=== PATIENT | female | born 1995 | race Caucasian/White ===

== ENCOUNTER 2016-07-19 11:03 | Emergency (ER) | payer OTHER ==
[2016-07-19 11:07] VITALS: BP 134/90; PULSE 81; RESP 16; TEMP 98.6; O2SAT 97
[2016-07-19 12:11] LABS: ANION GAP 8 mEq/L (8-16); CALCIUM 9.5 mg/dL (8.5-10.4); CARBON DIOXIDE 27 mEq/l (22-31); CHLORIDE 106 mEq/L (97-110); CREATININE 0.8 mg/dL (0.6-1.0); ETHANOL SERUM < 10 mg/dL (0-10); GLOMERULAR FILTRATION RATE > 60; GLUCOSE 84 mg/dL (70-100); POTASSIUM 4.2 mEq/L (3.5-5.2); SODIUM 141 mEq/L (134-144)
[2016-07-19 12:15] LABS: % IMMATURE GRANULYOCYTES 0.3 % (0.0-1.1); ABSOLUTE IMMATURE GRANULOCYTES 0.03 10^3/uL (0.00-0.10); ADD DIFF? NO; ADD MORPH? NO; ADD SCAN? NO; ATYPICAL LYMPHOCYTE FLAG 10 (0-99); FRAGMENT RBC FLAG 0 (0-99); HEMOGLOBIN 15.2 g/dL (12.6-16.3); LEFT SHIFT FLG 0 (0-99); LIPEMIA HEMOLYSIS FLAG 80 (0-99); MEAN CELL HEMOGLOBIN 28.5 pg (27.9-34.1); MEAN CELL VOLUME 86.1 fL (81.5-99.8); MEAN PLATELET VOLUME 10.2 fL (8.7-11.7); PLATELET CLUMPS FLAG 0 (0-99); PLATELET COUNT 255 10^3/uL (150-400); RED BLOOD CELL COUNT 5.34 10^6/uL (4.18-5.33); RED CELL DISTRIBUTION WIDTH 13.6 % (11.5-15.2)
[2016-07-19 12:54] LABS: ALANINE AMINOTRANSFERASE 17 IU/L (9-52); ALKALINE PHOSPHATASE 80 IU/L (38-126); ASPARTATE AMINOTRANSFERASE 32 IU/L (14-46); BILIRUBIN,TOTAL 0.7 mg/dL (0.1-1.4); BILIRUBIN-CONJUGATED 0.4 mg/dL (0.0-0.5); BILIRUBIN-UNCONJUGATED 0.3 mg/dL (0.0-1.1); SALICYLATE < 1.0 mg/dL (2.0-20.0); TOTAL PROTEIN 7.3 g/dL (6.3-8.2)
--- NOTE | 2016-07-19 15:18 | EDPHY ---
H & P Stated Complaint: Took "handful of advil" and 10 xanax last night; vomited immediately; ps hx Time Seen by Provider: 07/19/16 11:12 HPI/ROS: Chief complaint: Suicidal ideation History of present illness: This is a 21-year-old female who presents to the emergency department on her own for evaluation and treatment of suicidal ideation. Patient reports being under stress recently. Last night she was thinking of killing herself. She did take a couple of extra Xanax and ibuprofen last night. She states she immediately threw them back up. She states she ultimately went to sleep hoping she would wake up feeling better but wakes up this morning still having thoughts of hurting herself. She denies homicidal ideation. She denies illness or injury. Review of systems: A 10 point review of systems was obtained and other than described above was negative - Personal History LMP (Females 10-55): 1-7 Days Ago Current Tetanus Diphtheria and Acellular Pertussis (TDAP): Yes - Medical/Surgical History Other PMH: Psych - Social History Smoking Status: Never smoked - Physical Exam Exam: General Appearance: Alert, nontoxic. Eyes: Pupils equal and round no pallor or injection. ENT, Mouth: Mucous membranes moist. Respiratory: There are no retractions, lungs are clear to auscultation. Cardiovascular: Regular rate and rhythm. Gastrointestinal: Abdomen is soft and non tender, no masses, bowel sounds normal. Neurological: Alert and oriented. Strength and sensation intact and symmetrical. Skin: Warm and dry, no rashes. Musculoskeletal: Neck is supple non tender. Extremities are symmetrical, full range of motion. Psychiatric: Patient is oriented X 3, there is no agitation. Constitutional: Initial Vital Signs Temperature (C) 37 C 07/19/16 11:05 Heart Rate 81 07/19/16 11:05 Respiratory Rate 16 07/19/16 11:05 Blood Pressure 134/90 H 07/19/16 11:05 O2 Sat (%) 97 07/19/16 11:05 O2 Delivery Mode Room Air Allergies/Adverse Reactions: No Known Allergies Allergy (Unverified 07/19/16 11:07) Home Medications: Medication Instructions Recorded Control Pill 07/19/16 Escitalopram Oxalate [Lexapro] 10 mg PO 07/19/16 Medical Decision Making ED Course/Re-evaluation: Patient seen under the supervision of my secondary supervising physician Dr. Donn Ge. Patient presents to the emergency department for suicidal ideation. On presentation she is nontoxic. Afebrile and vital signs are stable. She has a benign physical exam. Laboratory studies are unremarkable. She is cleared for psychiatric evaluation. This has been performed, they believe patient can be safely discharged home and follow up on an outpatient basis. Resources are provided. Strict return precautions are given. Patient voiced understanding and agreement with plan. Differential Diagnosis: Included but not limited to depression, bipolar, schizophrenia, substance abuse - Data Points Laboratory Results: Laboratory Results 07/19/16 11:40 07/19/16 11:40 07/19/16 11:40 WBC 9.29 10^3/uL (3.80-9.50) RBC 5.34 H 10^6/uL (4.18-5.33) Hgb 15.2 g/dL (12.6-16.3) Hct 46.0 % (38.0-47.0) MCV 86.1 fL (81.5-99.8) MCH 28.5 pg (27.9-34.1) MCHC 33.0 g/dL (32.4-36.7) RDW 13.6 % (11.5-15.2) Plt Count 255 10^3/uL (150-400) MPV 10.2 fL (8.7-11.7) Neut % (Auto) 66.4 % (39.3-74.2) Lymph % (Auto) 25.3 % (15.0-45.0) Ceiba % (Auto) 5.2 % (4.5-13.0) Eos % (Auto) 2.3 % (0.6-7.6) Baso % (Auto) 0.5 % (0.3-1.7) Nucleat RBC Rel Count 0.0 % (0.0-0.2) Absolute Neuts (auto) 6.17 10^3/uL (1.70-6.50) Absolute Lymphs (auto) 2.35 10^3/uL (1.00-3.00) Absolute Monos (auto) 0.48 10^3/uL (0.30-0.80) Absolute Eos (auto) 0.21 10^3/uL (0.03-0.40) Absolute Basos (auto) 0.05 10^3/uL (0.02-0.10) Absolute Nucleated RBC 0.00 10^3/uL (0-0.01) Immature Gran % 0.3 % (0.0-1.1) Immature Gran # 0.03 10^3/uL (0.00-0.10) Sodium 141 mEq/L (134-144) Potassium 4.2 mEq/L (3.5-5.2) Chloride 106 mEq/L (97-110) Carbon Dioxide 27 mEq/l (22-31) Anion Gap 8 mEq/L (8-16) BUN 14 mg/dL (7-23) Creatinine 0.8 mg/dL (0.6-1.0) Estimated GFR > 60 Glucose 84 mg/dL (70-100) Calcium 9.5 mg/dL (8.5-10.4) Total Bilirubin 0.7 mg/dL (0.1-1.4) Conjugated Bilirubin 0.4 mg/dL (0.0-0.5) Unconjugated Bilirubin 0.3 mg/dL (0.0-1.1) AST 32 IU/L (14-46) ALT 17 IU/L (9-52) Alkaline Phosphatase 80 IU/L (38-126) Total Protein 7.3 g/dL (6.3-8.2) Albumin 4.0 g/dL (3.5-5.0) Beta HCG, Qual NEGATIVE Salicylates < 1.0 L mg/dL (2.0-20.0) Urine Opiates Screen NEGATIVE (NEGATIVE) Acetaminophen < 10 L mcg/mL (10.0-30.0) Urine Barbiturates NEGATIVE (NEGATIVE) Ur Phencyclidine Scrn NEGATIVE (NEGATIVE) Ur Amphetamine Screen NEGATIVE (NEGATIVE) U Benzodiazepines Scrn NEGATIVE (NEGATIVE) Urine Cocaine Screen NEGATIVE (NEGATIVE) U Marijuana (THC) Screen NEGATIVE (NEGATIVE) Ethyl Alcohol < 10 mg/dL (0-10) Departure - Departure Disposition: Home, Routine, Self-Care Clinical Impression: Suicidal ideation Instructions: Suicide Prevention for Adults (ED) Additional Instructions: Follow-up with the psychiatric resources provided to you today If you feel symptoms are worsening or new symptoms develop return to the emergency department for recheck Referrals: OUT OF STATE,. [Primary Care Provider] - As per Instructions
== END 2016-07-19 17:30 | disposition home or self-care (01) ==
LOC: EEVIPCON 11:03
DX: R45.851 Suicidal ideations (principal)
CPT/HCPCS: 80305; G0480

== ENCOUNTER 2016-08-06 22:38 | Inpatient (IN) | payer BC, OTHER ==
[2016-08-06 23:11] LABS: % IMMATURE GRANULYOCYTES 0.4 % (0.0-1.1); ABSOLUTE IMMATURE GRANULOCYTES 0.05 10^3/uL (0.00-0.10); ADD DIFF? NO; ADD MORPH? NO; ADD SCAN? NO; ATYPICAL LYMPHOCYTE FLAG 30 (0-99); FRAGMENT RBC FLAG 0 (0-99); HEMATOCRIT 40.3 % (38.0-47.0); HEMOGLOBIN 13.4 g/dL (12.6-16.3); LEFT SHIFT FLG 0 (0-99); LIPEMIA HEMOLYSIS FLAG 80 (0-99); MEAN CELL HEMOGLOBIN CONCENTR. 33.3 g/dL (32.4-36.7); MEAN CELL VOLUME 84.1 fL (81.5-99.8); MEAN PLATELET VOLUME 9.8 fL (8.7-11.7); PLATELET CLUMPS FLAG 0 (0-99); PLATELET COUNT 345 10^3/uL (150-400); RED BLOOD CELL COUNT 4.79 10^6/uL (4.18-5.33); RED CELL DISTRIBUTION WIDTH 13.9 % (11.5-15.2)
--- NOTE | 2016-08-06 23:22 | EDPHY ---
Mental Health General Previous Psychiatric History: previous suicide attempt Smoking Status: Never smoked Time Patient Placed on Detainer: 22:50 Time Medically Cleared for Psychiatric Evaluation: 00:38 Time of Transfer of Care: 01:[address]:: Kit Course: patient remained stable over course of my shift <Ale Chin - Last Filed: 08/07/16 00:36> Course: eval by mental health <Rydre Pantoja - Last Filed: 08/07/16 03:25> Narrative: CHIEF COMPLAINT: suicidal ideations HISTORY OF PRESENT ILLNESS: A 21-year-old female presents emergency department reporting suicidal ideations. Patient reports multiple previous suicide attempts. She is treated for depression with a SSRI by a psychiatrist in [place]. Patient reports she had a syncopal episode tonight at home. She was walking into her room, got tunnel vision and passed out she says just for a few seconds, this was not witnessed. Patient thinks this happened because she has not had much to eat or drink today and she did a kick boxing class. She denies nausea, vomiting or diarrhea, no chest pain or shortness of breath. Patient reports she woke up from the syncopal episode feeling suicidal plans to drive off of a nyasia. She got into her car and started driving to find a nyasia, got nervous, turned around and came to the emergency department. Patient was seen in the emergency department 1 week ago after she says she took a handful of ibuprofen and 10 Xanax in a suicide attempts. She reports she immediately vomited these after ingesting them. Patient denies homicidal ideations, auditory and visual hallucinations. She denies drug and alcohol use. REVIEW OF SYSTEMS: A comprehensive 10 point review of systems is otherwise negative aside from elements mentioned in the history of present illness. Physical Exam Gen: Alert and Oriented, NAD HEENT: PERRL, moist mucous membranes NECK: no meningismus CV: regular rate and regular rhythm PULM: CTAB, no wheezes ABDOMEN: soft, non tender to palpation, BS present BACK: No CVA tenderness NEURO: Neurologically grossly intact EXTREMITIES: normal appearing SKIN: no rash or break in skin on exposed skin PSYCH: answers questions appropriately, smiling, talkative, reports suicidal ideations, denies homicidal ideations, auditory or visual hallucinations (Ale Chin) Medical Decision Makin-year-old female presents with suicidal ideations after a syncopal episode at home. CBC, chemistry panel obtained along with an EKG. Patient has a mildly elevated white blood cell count, chemistry panel is normal, H&H are normal. She is not . EKG shows normal sinus rhythm, rate 68, normal axis, good R-wave progression, no ST or T-wave abnormalities. Ethyl alcohol is 0 and urine tox screen is 0. Patient is medically cleared for psychiatric evaluation. 0100-report passed on to at the end of my shift pending evaluation. ( Ale Chin) 0100 care assumed by me pending mental health evaluation. 0325 patient has been accepted to [address] [place] [address] Ferrer. The anti has been completed by me. (Ryder Pantoja) - Objective Vital Signs: Initial Vital Signs Temperature (C) 36.7 C 08/06/16 22:43 Heart Rate 76 08/06/16 22:43 Respiratory Rate 20 08/06/16 22:43 Blood Pressure 129/86 H 08/06/16 22:43 O2 Sat (%) 99 08/06/16 22:43 Allergies/Adverse Reactions: No Known Allergies Allergy (Unverified 08/06/16 22:42) Home Medications: Medication Instructions Recorded Control Pill 07/19/16 Escitalopram Oxalate [Lexapro] 10 mg PO 07/19/16 Laboratory Results: Laboratory Results 08/06/16 22:55 08/06/16 22:55 08/06/16 08/06/16 08/06/16 23:30 22:55 22:55 WBC RBC Hgb Hct MCV MCH MCHC RDW Plt Count MPV Neut % (Auto) Lymph % (Auto) Lake % (Auto) Eos % (Auto) Baso % (Auto) Nucleat RBC Rel Count Absolute Neuts (auto) Absolute Lymphs (auto) Absolute Monos (auto) Absolute Eos (auto) Absolute Basos (auto) Absolute Nucleated RBC Immature Gran % Immature Gran # Sodium 138 mEq/L mEq/L (134-144) Potassium 4.0 mEq/L mEq/L (3.5-5.2) Chloride 105 mEq/L mEq/L (97-110) Carbon Dioxide 23 mEq/l mEq/l (22-31) Anion Gap 10 mEq/L mEq/L (8-16) BUN 14 mg/dL mg/dL (7-23) Creatinine 0.8 mg/dL mg/dL (0.6-1.0) Estimated GFR > 60 Glucose 76 mg/dL mg/dL (70-100) Calcium 9.9 mg/dL mg/dL (8.5-10.4) Beta HCG, Qual NEGATIVE Urine Opiates Screen NEGATIVE (NEGATIVE) Urine Barbiturates NEGATIVE (NEGATIVE) Ur Phencyclidine Scrn NEGATIVE (NEGATIVE) Ur Amphetamine Screen NEGATIVE (NEGATIVE) U Benzodiazepines Scrn NEGATIVE (NEGATIVE) Urine Cocaine Screen NEGATIVE (NEGATIVE) U Marijuana (THC) Screen NEGATIVE (NEGATIVE) Ethyl Alcohol < 10 mg/dL mg/dL (0-10) 08/06/16 22:55 WBC 11.59 10^3/uL H 10^3/uL (3.80-9.50) RBC 4.79 10^6/uL 10^6/uL (4.18-5.33) Hgb 13.4 g/dL g/dL (12.6-16.3) Hct 40.3 % % (38.0-47.0) MCV 84.1 fL fL (81.5-99.8) MCH 28.0 pg pg (27.9-34.1) MCHC 33.3 g/dL g/dL (32.4-36.7) RDW 13.9 % % (11.5-15.2) Plt Count 345 10^3/uL 10^3/uL (150-400) MPV 9.8 fL fL (8.7-11.7) Neut % (Auto) 50.1 % % (39.3-74.2) Lymph % (Auto) 43.6 % % (15.0-45.0) Lake % (Auto) 4.4 % L % (4.5-13.0) Eos % (Auto) 1.0 % % (0.6-7.6) Baso % (Auto) 0.5 % % (0.3-1.7) Nucleat RBC Rel Count 0.0 % % (0.0-0.2) Absolute Neuts (auto) 5.80 10^3/uL 10^3/uL (1.70-6.50) Absolute Lymphs (auto) 5.05 10^3/uL H 10^3/uL (1.00-3.00) Absolute Monos (auto) 0.51 10^3/uL 10^3/uL (0.30-0.80) Absolute Eos (auto) 0.12 10^3/uL 10^3/uL (0.03-0.40) Absolute Basos (auto) 0.06 10^3/uL 10^3/uL (0.02-0.10) Absolute Nucleated RBC 0.00 10^3/uL 10^3/uL (0-0.01) Immature Gran % 0.4 % % (0.0-1.1) Immature Gran # 0.05 10^3/uL 10^3/uL (0.00-0.10) Sodium Potassium Chloride Carbon Dioxide Anion Gap BUN Creatinine Estimated GFR Glucose Calcium Beta HCG, Qual Urine Opiates Screen Urine Barbiturates Ur Phencyclidine Scrn Ur Amphetamine Screen U Benzodiazepines Scrn Urine Cocaine Screen U Marijuana (THC) Screen Ethyl Alcohol Departure <Ale Chin - Last Filed: 08/07/16 00:36> <Ryder Pantoja - Last Filed: 08/07/16 03:25> - Departure Disposition: [facility] IP Clinical Impression: Suicidal ideation Condition: Fair Referrals: NONE *PRIMARY CARE P,. [Primary Care Provider] - As per Instructions
[2016-08-06 23:32] LABS: ANION GAP 10 mEq/L (8-16); CALCIUM 9.9 mg/dL (8.5-10.4); CARBON DIOXIDE 23 mEq/l (22-31); CHLORIDE 105 mEq/L (97-110); CREATININE 0.8 mg/dL (0.6-1.0); ETHANOL SERUM < 10 mg/dL (0-10); GLOMERULAR FILTRATION RATE > 60; GLUCOSE 76 mg/dL (70-100); SODIUM 138 mEq/L (134-144)
--- NOTE | 2016-08-06 23:53 | CPEKG ---
Heart Rate: 68 RR Interval: 882 P-R Interval: 132 QRSD Interval: 76 QT Interval: 392 QTC Interval: 417 P Rich[place]: 13 QRS [place]: 37 T Wave [place]: 14 EKG Severity - NORMAL ECG - EKG Impression: SINUS RHYTHM Electronically Signed By: Ryder Pantoja 07-Aug-2016 05:45:42
[2016-08-07] MEDS ORDERED: hydrOXYzine HCL 25 MG TAB PO PRN (05:15)
[2016-08-07] MEDS ORDERED: ACETAMINOPHEN 325 MG TAB PO PRN (05:15)
[2016-08-07] MEDS ORDERED: MAGNESIUM HYDROXIDE 30 ML UDCUP PO PRN (05:15)
[2016-08-07] MEDS ORDERED: NICOTINE POLACRILEX 2 MG GUM B PRN (05:15)
[2016-08-07] MEDS ORDERED: MAG HYDROX/AL HYDROX/SIMETH 30 ML UDCUP PO PRN (05:15)
[2016-08-07] MEDS ORDERED: ESCITALOPRAM OXALATE 10 MG TAB PO SCH ×2 (09:00→10:39)
[2016-08-07] MEDS: ESCITALOPRAM OXALATE 10 MG TAB PO SCH (11:16)
[2016-08-07] MEDS: BIRTH CONTROL PILL PO SCH (11:17)
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
--- NOTE | 2016-08-07 14:01 | BCON ---
[f rep st] BEHAVIORAL HEALTH CONSULTATION INTERNAL MEDICINE CONSULTATION DATE OF CONSULTATION: 08/07/2016 REFERRING PHYSICIAN: Rosmery Ferrer MD REASON FOR CONSULTATION: Medical clearance for inpatient behavioral health stay. HISTORY OF PRESENT ILLNESS: Ms. Bhatti presented to the emergency department reporting suicidal ideation. She had a previous history of depression and suicide attempts. She had been prescribed Lexapro 5 mg but had not been taking it recently. She was evaluated by the mental health team and was admitted for further psychiatric care. She currently is without any acute complaints. PAST MEDICAL HISTORY: Depression. PAST SURGICAL HISTORY: She denies any history of any surgeries. MEDICATIONS: 1. Escitalopram. 2. control pill. ALLERGIES: There are no known drug allergies. 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 She lives with 3 roommates. She denies tobacco smoking or excessive alcohol use. She occasionally smokes marijuana. FAMILY HISTORY: Noncontributory. REVIEW OF SYSTEMS: She reports weight loss, approximately 15 pounds since March. Her weight subsequently fluctuates. She has an appetite; but then when she has food, she often does not want to eat. She denies diaphoresis, excessive heat or cold, excessive fatigue, tremor, or change in bowel habits. Otherwise, a 10-point review of systems is negative. PHYSICAL EXAM: VITAL SIGNS: Blood pressure is 112/63. Heart rate is 74. Respiratory rate is 16. Oxygen saturation is 96% on room air. Temperature is 36.6 degrees centigrade. Her weight is 52.2 kg for a body mass index of 21. GENERAL: This is a well-nourished, well-developed, but thin woman, appears her chronologic age. Cooperative and in no acute distress. HEENT: Pupils are equal, round, and reactive to light. Extraocular movements are intact. Mucous membranes are moist. Dentition is in good condition. NECK: Supple. HEART: There is a regular rate and rhythm with no murmurs, rubs, or gallops. LUNGS: Clear to auscultation bilaterally. ABDOMEN: Soft, nontender, and nondistended with normoactive bowel sounds. EXTREMITIES: There is no cyanosis, clubbing, or edema. NEUROLOGIC: She is alert and oriented x3. Cranial nerves 2-12 are grossly intact. There is no focal weakness, and sensation is intact to light touch. LABORATORY STUDIES: From the emergency department, CBC revealed a slightly elevated white blood cell count, 11.59. There was no left shift, and there was a slight increase in absolute lymphocytes at 5.05. Serum chemistry revealed normal renal function and electrolytes. Beta HCG was negative for . On a recent prior emergency department visit, her liver function tests were within normal limits. Toxicology screen in the serum was negative for ethyl alcohol, and the urine was negative for substances of abuse. ASSESSMENT AND RECOMMENDATIONS: 1. Mental health issues. Pending further evaluation and management per Psychiatry and the mental health team. 2. Weight loss, most likely due to depression. There are no other symptoms which could implicate hormonal or metabolic disease. Advise observation for return of normal appetite, as her mental health condition is stabilized. I see no medical contraindications to the patient's continued stay on the inpatient behavioral health unit or to any psychiatric medications or procedures. Thank you very much for including me in the care of this patient, and please do not hesitate to contact me or the hospitalist service should there be a need for further medical evaluation. /[id number]/MODL MTDD
[2016-08-07] MEDS: MELATONIN 3 MG TAB PO PRN (21:07)
[2016-08-08 06:14] VITALS: RESP 14
[2016-08-08] MEDS: ESCITALOPRAM OXALATE 10 MG TAB PO SCH (08:17)
[2016-08-08] MEDS: BIRTH CONTROL PILL PO SCH (08:20)
--- NOTE | 2016-08-08 23:54 | SOAPPROG ---
SOAP Progress Note Assessment/Plan: Assessment: 21yo CF with hx MDD, recurrent admitted vol s/p SI with thoughts to drive off road, but drove to crisis center for help 08/08/16 15:48 per staff, slept 9hr. worked on safety plan. pt states tolerating Lexapro 7.5mg without problems except perhaps mild GI upset , "a little groggy", but then also "a little hyperactive, like I want to exercise." slept a little less well last night, although staff reported 9hr. talked about feeling good for several days then balanced then depressed w/"dark thoughts". often situationally triggered. ie/felt very happy to see boyfriend after returning to [place] 2 wks ago, felt hypersexual, didn't sleep that night, then next day slept 11hr. Now they have broken up, but he contacted her yesterday and pt was happy to hear from him. States he has his own psych issues , incl possibly a drinking problem, and it's prob good they aren't together. He came to [place] recently for different reasons. Reports "unusual" feeling she found herself having toward a blind female peer she met on unit, felt immediately "connected", and as if "I wanted to take care of her". Later talked of taking kick-boxing classes to "get my aggressive tendencies" out, having social anxiety "since starting Lexapro" whereas previously very extroverted, and finding much support in her social [place] of friends. Wants to return to [place] to her friends. states she made f/u appts with outpt therapist and psychiatrist for 08/24 and 08/28 respectively. Expresses some "normal sadness" thoughts/feelings around anniversary of mothers presently. F is "stuck" in [place]. Discussed BMD sxs briefly and pt agreeable to have more information provided so she could read about BMD. does smoke THC 0-2x/wk. states for appetite. denies other drugs wonders about BMD b/c +FHx with mat uncle and mat cousins dxd BMD but they also use drugs/EtOH. feels her F is dismissive about mental illness, and told her to get off Lexapro , just relax and drink tea, instructing boyfriend to administer only 1/2 pill for few days then d/c (taper). Pt maintains she wanted to do this with her psychiatrist, but seems to indicate that this taper to d/c was not in her control... Has been off Lexapro x 4 days now. Started Lexapro initially 03/2016 during 1st inpt hosp stay and having "dark thoughts" with SI. MSE: casually dressed, appears stated age, engaging, nml psychom activity, not restless, no akathisia, nml vol speech, nml to slight incr rate speech, talkative, not pressured, good eye contact, mood "I'm better", affect full range , thoughts overinclusive but not delusional, reality based, denied any SI/HI or any AH/VH. A&Ox4. i/j- good/fair. PLAN: cont Lexapro7.5mg, felt 5mg not helpful; could move to HS dosing due to c/o "groggy" but also seems to report feeling activated. Will cont to follow and assess. would like oupt collateral from [place] if possible on weekend cont to assess any hypomania vs personality, will have staff provide reading material on BMD as pt requests vol Objective: Vital Signs Temp Pulse Resp BP Pulse Ox 36.5 C 73 14 108/62 98 08/08/16 06:14 08/08/16 06:14 08/08/16 06:14 08/08/16 06:14 08/08/16 06:14 - Time Spent With Patient Time Spent With Patient: 40min - Pending Discharge Pending Discharge Within 24 Hours: No Pending Discharge Within 48 Hours: No ICD10 Worksheet Patient Problems: Problems Problem Status Onset Suicidal ideation Acute
[2016-08-09] MEDS: ESCITALOPRAM OXALATE 10 MG TAB PO SCH (08:51)
[2016-08-09] MEDS: BIRTH CONTROL PILL PO SCH (09:24)
--- NOTE | 2016-08-09 18:41 | SOAPPROG ---
SOAP Progress Note Assessment/Plan: Assessment: 21yo CF with hx MDD, recurrent admitted vol s/p SI with thoughts to drive off road, but drove to crisis center for help 08/08/16 15:48 per staff, slept 9hr. worked on safety plan. pt states tolerating Lexapro 7.5mg without problems except perhaps mild GI upset , "a little groggy", but then also "a little hyperactive, like I want to exercise." slept a little less well last night, although staff reported 9hr. talked about feeling good for several days then balanced then depressed w/"dark thoughts". often situationally triggered. ie/felt very happy to see boyfriend after returning to [facility] 2 wks ago, felt hypersexual, didn't sleep that night, then next day slept 11hr. Now they have broken up, but he contacted her yesterday and pt was happy to hear from him. States he has his own psych issues , incl possibly a drinking problem, and it's prob good they aren't together. He came to [place] recently for different reasons. Reports "unusual" feeling she found herself having toward a blind female peer she met on unit, felt immediately "connected", and as if "I wanted to take care of her". Later talked of taking kick-boxing classes to "get my aggressive tendencies" out, having social anxiety "since starting Lexapro" whereas previously very extroverted, and finding much support in her social [place] of friends. Wants to return to [place] to her friends. states she made f/u appts with outpt therapist and psychiatrist for 08/24 and 08/28 respectively. Expresses some "normal sadness" thoughts/feelings around anniversary of mothers presently. F is "stuck" in [place]. Discussed BMD sxs briefly and pt agreeable to have more information provided so she could read about BMD. does smoke THC 0-2x/wk. states for appetite. denies other drugs wonders about BMD b/c +FHx with mat uncle and mat cousins dxd BMD but they also use drugs/EtOH. feels her F is dismissive about mental illness, and told her to get off Lexapro , just relax and drink tea, instructing boyfriend to administer only 1/2 pill for few days then d/c (taper). Pt maintains she wanted to do this with her psychiatrist, but seems to indicate that this taper to d/c was not in her control... Has been off Lexapro x 4 days now. Started Lexapro initially 03/2016 during 1st inpt hosp stay and having "dark thoughts" with SI. MSE: casually dressed, appears stated age, engaging, nml psychom activity, not restless, no akathisia, nml vol speech, nml to slight incr rate speech, talkative, not pressured, good eye contact, mood "I'm better", affect full range , thoughts overinclusive but not delusional, reality based, denied any SI/HI or any AH/VH. A&Ox4. i/j- good/fair. PLAN: cont Lexapro7.5mg, felt 5mg not helpful; could move to HS dosing due to c/o "groggy" but also seems to report feeling activated. Will cont to follow and assess. would like oupt collateral from [place] if possible on weekend cont to assess any hypomania vs personality, will have staff provide reading material on BMD as pt requests vol 08/09/16 17:57 took hydroxyzine last pm, felt hangover effect, h/a, queasy, groggy this am. refused lexapro this am b/c wanted to try at HS recognizes several sxs of BMD when read information intense depr in Feb pptd by breakup. [place] random dark thoughts which were negative, you're not worth it etc (never SI) would come rarely prior to Feb, about 2x/yr. In Feb, whole month of depr w/continuous dark thoughts with SI and wt loss in Feb until psych admitted 03/2016, no attempts prior altho had thought to take pills but took bottle and flushed b/c didn't want to act on it. No longer continuous dark mood as in Feb., but more freq suicidal thoughts depr/SI came in waves after Mar mood was more occasional Since then, has had about 3x she felt SI and "came close", also intrusive dark thoughts came in waves. Brief happy times for a couple of days (a friend thought she was "overcompensating", then baseline, then 1/2-1 day would feel low. More hypersexual obsessions, spending spree (boyfriend felt it was excessive), one speeding ticket and no hx prior. Erratic sleep, ranging from 2hr /nt 2x/wk to 12hr. Reports also talking and thinking fast. Has been asked if she was "on something". mild paranoia, hypervigilance ceased after starting Lexapro. returned after Lexapro taper started. 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 Did get a new car, one to drive in snow. Planned to move to [place] 05/21 and moved 06/30. sold other car, and waited to find someone to [employer]. Visited 04/2016 and liked, part of it was to get away from ex-bf. feels a bit impusive but that actions are someone thought out. Doesn't recall last time was single for long since 17yo. mat uncle w/szp, bmd, drug use etc precipitated by tbi as she recalls; 2 pat uncles depr/anxiety. wondering about states she has insight on decisions, but should have waited until more $ stable and emotionally but when depr at home, easier to reach out to friends 08/09/16 18:51 Objective: Vital Signs Temp Pulse Resp BP Pulse Ox 36.5 C 55 L 14 103/60 95 08/09/16 06:40 08/09/16 06:40 08/09/16 06:40 08/09/16 06:40 08/09/16 06:40 ICD10 Worksheet Patient Problems: Problems Problem Status Onset Suicidal ideation Acute
[2016-08-09] MEDS ORDERED: MELATONIN 3 MG TAB PO PRN (19:56)
[2016-08-09] MEDS ORDERED: ESCITALOPRAM OXALATE 10 MG TAB PO SCH (21:00)
[2016-08-09] MEDS: MELATONIN 3 MG TAB PO PRN (21:38)
[2016-08-10 06:48] VITALS: BP 99/54; PULSE 62; TEMP 97.9; O2SAT 97
[2016-08-10] MEDS: BIRTH CONTROL PILL PO SCH (07:55)
--- NOTE | 2016-08-10 13:10 | SOAPPROG ---
SOAP Progress Note Assessment/Plan: DISCHARGE NOTE: (dictation to follow) Assessment: 21yo CF with hx MDD, recurrent admitted vol s/p SI with thoughts to drive off road, but drove to crisis center for help. Had been off Lexapro for 4 days after a self-taper. Pt slept 9hr last night. reports feeling "normal, good" this morning, "alert, my appetite is back" since resumed Lexapro 5mg dose at HS last night, with no medicine side effects, no grogginess or GI distress as previously when took 7.5mg Lexapro in AM after admission, or when took Vistaril 50mg at HS. Extensively discussed medication benefits and risks (incl incr SI in <24yo) in context of any bipolar mood disorder, as pt had reported some symptoms only somewhat suggestive of mood d/o, but not fitting any clear BMD diagnosis over the months prior to admission (refer to note from 08/09). Consistently denied any SI and feels hosp stay has been very beneficial. Feels it has helped her to "recollect my thoughts" in a location where she felt "100% safe" and gave her "more confidence to tackle my recovery more seriously". Expressed good insight into reason for admission and precipitants, with plan for return to [place] with father this weekend where her support system is. States if any safety concerns and not feeling able to maintain safety (or any worsening mood sxs/instability), will go to Crisis center, ER or call 911 or a friend to bring her in. MSE: casually dressed, engaging, nml psychom activity, good eye contact, full affect , mood "good", no evidence of hypomania, nml rate/vol speech, thoughts linear, goal-directed and future-oriented, reality-based. Denied any SI or any AH/VH/ HI. i/j both appear good. cognition intact conversationally. A&Ox4. PLAN: safe for d/c with f/u plans in place. no meds needed. states she still has 2 bottles Lexapro at home. 08/08/16 15:48 per staff, slept 9hr. worked on safety plan. pt states tolerating Lexapro 7.5mg without problems except perhaps mild GI upset , "a little groggy", but then also "a little hyperactive, like I want to exercise." slept a little less well last night, although staff reported 9hr. talked about feeling good for several days then balanced then depressed w/"dark thoughts". often situationally triggered. ie/felt very happy to see boyfriend after returning to [facility] 2 wks ago, felt hypersexual, didn't sleep that night, then next day slept 11hr. Now they have broken up, but he contacted her yesterday and pt was happy to hear from him. States he has his own psych issues , incl possibly a drinking problem, and it's prob good they aren't together. He came to [place] recently for different reasons. Reports "unusual" feeling she found herself having toward a blind female peer she met on unit, felt immediately "connected", and as if "I wanted to take care of her". Later talked of taking kick-boxing classes to "get my aggressive tendencies" out, having social anxiety "since starting Lexapro" whereas previously very extroverted, and finding much support in her social [place] of friends. Wants to return to [place] to her friends. states she made f/u appts with outpt therapist and psychiatrist for 08/24 and 08/28 respectively. Expresses some "normal sadness" thoughts/feelings around anniversary of mothers presently. F is "stuck" in [place]. Discussed BMD sxs briefly and pt agreeable to have more information provided so she could read about BMD. does smoke THC 0-2x/wk. states for appetite. denies other drugs wonders about BMD b/c +FHx with mat uncle and mat cousins dxd BMD but they also use drugs/EtOH. feels her F is dismissive about mental illness, and told her to get off Lexapro , just relax and drink tea, instructing boyfriend to administer only 1/2 pill for few days then d/c (taper). Pt maintains she wanted to do this with her psychiatrist, but seems to indicate that this taper to d/c was not in her control... Has been off Lexapro x 4 days now. Started Lexapro initially 03/2016 during 1st inpt hosp stay and having "dark thoughts" with SI. MSE: casually dressed, appears stated age, engaging, nml psychom activity, not restless, no akathisia, nml vol speech, nml to slight incr rate speech, talkative, not pressured, good eye contact, mood "I'm better", affect full range , thoughts overinclusive but not delusional, reality based, denied any SI/HI or any AH/VH. A&Ox4. i/j- good/fair. PLAN: cont Lexapro7.5mg, felt 5mg not helpful; could move to HS dosing due to c/o "groggy" but also seems to report feeling activated. Will cont to follow and assess. would like oupt collateral from [place] if possible on weekend cont to assess any hypomania vs personality, will have staff provide reading material on BMD as pt requests vol 08/09/16 17:57 took hydroxyzine last pm, felt hangover effect, h/a, queasy, groggy this am. refused lexapro this am b/c wanted to try at HS recognizes several sxs of BMD when read information intense depr in Feb pptd by breakup. [place] random dark thoughts which were negative, you're not worth it etc (never SI) would come rarely prior to Feb, about 2x/yr. In Feb, whole month of depr w/continuous dark thoughts with SI and wt loss in Feb until psych admitted 03/2016, no attempts prior altho had thought to take pills but took bottle and flushed b/c didn't want to act on it. No longer continuous dark mood as in Feb., but more freq suicidal thoughts depr/SI came in waves after Oct mood was more occasional Since then, has had about 3x she felt SI and "came close", also intrusive dark thoughts came in waves. Brief happy times for a couple of days (a friend thought she was "overcompensating", then baseline, then 1/2-1 day would feel low. More hypersexual obsessions, spending spree (boyfriend felt it was excessive), one speeding ticket and no hx prior. Erratic sleep, ranging from 2hr /nt 2x/wk to 12hr. Reports also talking and thinking fast. Has been asked if she was "on something". mild paranoia, hypervigilance ceased after starting Lexapro. returned after Lexapro taper started. 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 Did get a new car, one to drive in snow. Planned to move to [place] 05/21 and moved 06/30. sold other car, and waited to find someone to [employer]. Visited 04/2016 and liked, part of it was to get away from ex-bf. feels a bit impusive but that actions are someone thought out. Doesn't recall last time was single for long since 17yo. mat uncle w/szp, bmd, drug use etc precipitated by tbi as she recalls; 2 pat uncles depr/anxiety. states she has insight on decisions, but should have waited until more $ stable and emotionally but when depr at home, easier to reach out to friends Discussed at length options for treatment and diagnostic criteria for BMD 1 vs 2 , and again reviewed benefits vs risks of antidepr medications. Pt expressed good insight and understanding. States she would like to resume Lexapro at previously Rxd dose 5mg qhs, because overall felt it was helpful until she tapered and d/c'd. Also states she is looking forward to returning to [facility] close to her support systems including w/ MH providers. PLAN: d/c hydroxyzine prn melatonin decr Lexapro to 5mg and schedule at HS which she reports was beneficial previously Objective: Vital Signs Temp Pulse Resp BP Pulse Ox 36.6 C 62 14 99/54 L 97 08/10/16 06:47 08/10/16 06:47 08/10/16 06:47 08/10/16 06:47 08/10/16 06:47 ICD10 Worksheet Patient Problems: Problems Problem Status Onset Suicidal ideation Acute
== END 2016-08-10 14:26 | disposition home or self-care (01) | DRG 885 ==
LOC: BBEH 08-07 05:00
PROVIDERS: ADMIT Psychiatry & Neurology Behavioral Neurology & Neuropsychiatry; ATTEND Psychiatry & Neurology Behavioral Neurology & Neuropsychiatry
DX: F33.9 Major depressive disorder, recurrent, unspecified (principal); F12.90 Cannabis use, unspecified, uncomplicated
CPT/HCPCS: 80305; G0480